=== PATIENT | female | born 2000 | race Caucasian/White ===

== ENCOUNTER 2021-03-15 02:44 | Outpatient (CLI) | payer MEDICAID, SELFPAY ==
[2021-03-15 08:49] LABS: ALT 24 U/L (14-59); AST 15 U/L (15-37); Albumin 3.9 g/dL (3.4-5.0); Alkaline Phosphatase 74 U/L (46-116); Anion Gap 9.2 mmol/L (3-11); BUN 15 mg/dL (7-18); Bilirubin, Total 0.4 mg/dL (0.2-1.0); CO2 26.8 mmol/L (21.0-32.0); CREATININE 0.8 mg/dL (0.55-1.02); Calcium 8.8 mg/dL (8.5-10.1); Calculated LDL 101 mg/dL (<100); Chloride 105 mmol/L (98-107); Cholesterol 193 mg/dL (<200); Glucose 89 mg/dL (74-106); HDL Cholesterol 55 mg/dL (40-60); Sodium 141 mmol/L (136-145); Triglyceride 186 mg/dL (<150)
== END 2021-03-15 02:45 | disposition home or self-care (01) ==
LOC: LBO 02:44
DX: Z13.220 Encounter for screening for lipoid disorders (principal); Z00.00 Encounter for general adult medical examination without abnormal findings
CPT/HCPCS: 36415; 80053; 80061

== ENCOUNTER 2021-03-23 14:38 | Outpatient (CLI) | payer MEDICAID, SELFPAY ==
--- NOTE | 2021-03-23 11:45 | DI.RAD_ITS ---
Exam(s) XR FOOT RT COMPLETE EXAM: XR FOOT RT COMPLETE CLINICAL HISTORY: R foot injury TECHNIQUE: COMPARISON: No exams were available for comparison FINDINGS: Three views were obtained. There is an probable fracture deformity of the medial aspect of the base of the 2nd metatarsal raising the possibility of a Lisfranc ligament injury. No additional fracture seen. Please correlate with the site of the patient's injury, additional evaluation with CT or MR ma y be helpful in evaluating this area. IMPRESSION: Suspect Lisfranc ligament avulsion, CT or MR confirmation may be obtained if clinically indicated RADIATION DOSE DELIVERED: Total DLP
== END 2021-03-23 14:39 | disposition home or self-care (01) ==
LOC: DIORS 14:40
PROVIDERS: Visit Provider Physician Assistant
DX: S99.821A Other specified injuries of right foot, initial encounter (principal); R93.7 Abnormal findings on diagnostic imaging of other parts of musculoskeletal system
CPT/HCPCS: 73630

== ENCOUNTER 2021-05-16 14:07 | Outpatient (REF) | payer MEDICAID, SELFPAY ==
--- NOTE | 2021-05-16 11:58 | PAPFT_PTH ---
PATIENT: Eve Zafar LOC: [facility] U#:[id number] AGE/SX: 21/F ROOM: RE05/16/[address]: Flavia López APRN : 2000 BED: DIS: 05/16/2021 SPEC #: [id number] RECD: 05/16/21 18:27 STATUS: JUDD RUSH #: [id number] PAT: 05/16/21 11:[address]: Flavia López DEPT: [facility] Cytology RECD BY: Norma Castro Tissues: 1 - CX/ENDOCX FOR PAP SMEARS Procedures: PAP THIN PREP/[facility] Screening Comments: [id number] (CHLAMYDIA/GC)
[2021-05-17 14:28] LABS: Chlamydia Result Negative (Negative); GC Result Negative (Negative)
== END 2021-05-16 14:08 | disposition home or self-care (01) ==
LOC: LBN 14:07
DX: Z12.4 Encounter for screening for malignant neoplasm of cervix (principal); Z11.3 Encounter for screening for infections with a predominantly sexual mode of transmission
CPT/HCPCS: 87491; 87591; 88142

== ENCOUNTER 2022-04-11 15:13 | Outpatient (REF) | payer MEDICAID, SELFPAY ==
[2022-04-11 14:09] LABS: Microalb ug/mg Crea 11.7 ug/mg Cr
== END 2022-04-11 15:14 | disposition home or self-care (01) ==
LOC: LBN 15:13
PROVIDERS: PCP Nurse Practitioner Family; Visit Provider Nurse Practitioner Family
DX: R03.0 Elevated blood-pressure reading, without diagnosis of hypertension (principal)
CPT/HCPCS: 82043; 82570

== ENCOUNTER 2022-06-13 12:04 | Outpatient (CLI) | payer MEDICAID, SELFPAY ==
--- NOTE | 2022-06-13 12:00 | RT.EKG_ITS ---
APPROVED REPORT Exam: Resting ECG Reason for Exam: High blood pressure Patient Location: O HR:86 bpm ECG Measurements Heart Rate [address] 123 P 19 QRSd 82 QRS 30 QT 367 T 28 QTc 439 Conclusion Sinus rhythm...normal P axis, V-rate 50- 99 Normal Electrocardiogram
== END 2022-06-13 12:05 | disposition home or self-care (01) ==
LOC: DI.CM 12:05
PROVIDERS: PCP Nurse Practitioner Family; Visit Provider Nurse Practitioner Family
DX: I10 Essential (primary) hypertension (principal)
CPT/HCPCS: 93010

== ENCOUNTER 2022-06-21 04:04 | Outpatient (CLI) | payer MEDICAID, SELFPAY ==
[2022-06-21 12:30] LABS: Abs Immature Grans 0.04 10^3/uL (0.0-0.06); Absolute Basophil Count 0.05 10^3/uL (0.0-0.2); Absolute Eosinophil Count 0.13 10^3/uL (0.0-0.7); Absolute Monocyte Count 0.58 10^3/uL (0.1-0.8); Basophils % 0.5; Eosinophils % 1.3; HCT 35.5 % (36.0-46.0); HGB 11.6 g/dL (11.2-15.7); Immature Grans % 0.4; Lymphocytes % 21.2; MCH 30.1 pg (27.0-33.0); MCHC 32.7 % (32.0-36.0); MCV 92 fL (80-95); MPV 10.2 fL (8.0-11.0); Monocytes % 5.9; Neutrophils % 70.7; Platelet Count 323 10^3/uL (130-400); RBC 3.85 10^6/uL (3.93-5.22); RDW 12.4 % (11.7-14.6); RDW-SD 42.1 fL
[2022-06-21 12:48] LABS: Anion Gap 9.3 mmol/L (3-11); BUN 15 mg/dL (7-18); CO2 27.7 mmol/L (21.0-32.0); CREATININE 0.9 mg/dL (0.55-1.02); Calcium 9.5 mg/dL (8.5-10.1); Calculated LDL 94 mg/dL (<100); Chloride 103 mmol/L (98-107); Cholesterol 175 mg/dL (<200); Estimated GFR 91.55 (mL/min/1.73m2); Glucose 102 mg/dL (74-106); HDL Cholesterol 53 mg/dL (40-60); Potassium 4.1 mmol/L (3.5-5.1); Sodium 140 mmol/L (136-145); Triglyceride 141 mg/dL (<150)
== END 2022-06-21 04:05 | disposition home or self-care (01) ==
LOC: LOS 04:04
PROVIDERS: PCP Nurse Practitioner Family; Visit Provider Nurse Practitioner Family
DX: I10 Essential (primary) hypertension (principal)
CPT/HCPCS: 36415; 80048; 80061; 85025

== ENCOUNTER 2022-07-16 16:02 | Outpatient (REF) | payer MEDICAID, SELFPAY ==
[2022-07-20 16:17] LABS: Urine Volume 500 mL
== END 2022-07-16 16:03 | disposition home or self-care (01) ==
LOC: LBN 16:02
PROVIDERS: PCP Nurse Practitioner Family; Visit Provider Nurse Practitioner Family
DX: I10 Essential (primary) hypertension (principal)
CPT/HCPCS: 81050; 82384

== ENCOUNTER 2023-06-29 15:21 | Outpatient (REF) | payer MEDICAID, SELFPAY ==
[2023-06-29 15:37] LABS: Abs Immature Grans 0.02 10^3/uL (0.0-0.06); Absolute Basophil Count 0.04 10^3/uL (0.0-0.2); Absolute Lymphocyte Count 2.93 10^3/uL (1.2-3.4); Absolute Monocyte Count 0.57 10^3/uL (0.1-0.8); Absolute Neutrophil Count 5.43 10^3/uL (1.2-6.7); Basophils % 0.4; Eosinophils % 1.1; HCT 34.4 % (36.0-46.0); HGB 11.5 g/dL (11.2-15.7); Immature Grans % 0.2; Lymphocytes % 32.2; MCH 29.9 pg (27.0-33.0); MCHC 33.4 % (32.0-36.0); MCV 90 fL (80-95); MPV 10.5 fL (8.0-11.0); Monocytes % 6.3; Neutrophils % 59.8; Platelet Count 265 10^3/uL (130-400); RBC 3.84 10^6/uL (3.93-5.22); RDW-SD 39.2 fL; WBC 9.09 10^3/uL (4.4-10.8)
[2023-06-29 15:52] LABS: ALT 21 U/L (14-59); AST 13 U/L (15-37); Albumin 3.7 g/dL (3.4-5.0); Alkaline Phosphatase 78 U/L (46-116); BUN 10 mg/dL (7-18); Bilirubin, Total 0.4 mg/dL (0.2-1.0); CREATININE 0.9 mg/dL (0.55-1.02); Chloride 103 mmol/L (98-107); Estimated GFR 90.98 (mL/min/1.73m2); Glucose 100 mg/dL (74-106); Potassium 4.3 mmol/L (3.5-5.1); Sodium 139 mmol/L (136-145); Total Protein 7.4 g/dL (6.4-8.2)
[2023-07-01 10:56] LABS: IgA 272 mg/dL (85-499); Interpretation (See Note); Tissue Transglutaminase IgA <4.0 CU (<20.0)
== END 2023-06-29 15:22 | disposition home or self-care (01) ==
LOC: LBN 15:21
PROVIDERS: PCP Nurse Practitioner Family; Visit Provider Nurse Practitioner Family
DX: K52.89 Other specified noninfective gastroenteritis and colitis (principal)
CPT/HCPCS: 80053; 82784; 83516; 85025

== ENCOUNTER 2023-07-01 21:48 | Outpatient (REF) | payer MEDICAID, SELFPAY ==
[2023-07-01 21:21] LABS: C Diff PCR Negative (Negative)
[2023-07-03 11:44] LABS: Campylobacter PCR Negative (Negative); Salmonella PCR Negative (Negative); Shiga Toxin PCR Negative (Negative); Shigella/Enteroinvasive Ecoli Negative (Negative)
[2023-07-04 20:59] LABS: Calprotectin <50.0 mcg/g
== END 2023-07-01 21:49 | disposition home or self-care (01) ==
LOC: LBN 21:48
PROVIDERS: PCP Nurse Practitioner Family; Visit Provider Nurse Practitioner Family
DX: K52.9 Noninfective gastroenteritis and colitis, unspecified (principal)
CPT/HCPCS: 87493; 87505; 83993

== ENCOUNTER 2024-04-17 18:03 | Outpatient (REF) | payer BC, SELFPAY ==
--- NOTE | 2024-04-17 13:40 | PAPFT_PTH ---
PATIENT: Eve Zafar LOC: [facility] U#:[id number] AGE/SX: 23/F ROOM: RE04/17/[address]: Ashwin Mccauley DNP : 2000 BED: DIS: 04/17/2024 SPEC #: [id number] RECD: 04/20/24 13:08 STATUS: JUDD REDustin #: [id number] PAT: 04/17/24 13:[address]: Ashwin Turner DEPT: [facility] Cytology RECD BY: Norma Castro Tissues: 1 - CX/ENDOCX FOR PAP SMEARS Procedures: PAP THIN PREP/[facility] Screening Comments: [id number] (CHLAMYDIA/GC)
[2024-04-21 11:44] LABS: Chlamydia Result Negative (Negative); GC Result Negative (Negative)
== END 2024-04-17 18:04 | disposition home or self-care (01) ==
LOC: LBN 18:03
PROVIDERS: PCP Nurse Practitioner Family; Visit Provider Nurse Practitioner Family
DX: Z11.51 Encounter for screening for human papillomavirus (HPV) (principal); Z01.419 Encounter for gynecological examination (general) (routine) without abnormal findings
CPT/HCPCS: 87491; 87591; 88142

== ENCOUNTER 2025-03-04 11:29 | Outpatient (CLI) | payer SELFPAY ==
[2025-03-04 12:25] LABS: HCT 32.6 % (36.0-46.0); HGB 11.1 g/dL (11.2-15.7); MCH 30.0 pg (27.0-33.0); MCHC 34.0 % (32.0-36.0); MCV 88 fL (80-95); MPV 9.3 fL (8.0-11.0); Platelet Count 273 10^3/uL (130-400); RBC 3.70 10^6/uL (3.93-5.22); RDW 12.2 % (11.7-14.6); RDW-SD 39.3 fL; WBC 8.88 10^3/uL (4.4-10.8)
[2025-03-04 13:29] LABS: Lab Add On Test DONE
[2025-03-04 13:36] LABS: ALT 34 U/L (14-59); AST 20 U/L (15-37); Albumin 3.5 g/dL (3.4-5.0); Alkaline Phosphatase 83 U/L (46-116); Anion Gap 11.9 mmol/L (3-11); BUN 8 mg/dL (7-18); Bilirubin, Total 0.3 mg/dL (0.2-1.0); CO2 25.1 mmol/L (21.0-32.0); Calcium 9.2 mg/dL (8.5-10.1); Calculated LDL 77 mg/dL (<100); Chloride 103 mmol/L (98-107); Cholesterol 153 mg/dL (<200); Estimated GFR 90.42 (mL/min/1.73m2); Glucose 131 mg/dL (74-106); HDL Cholesterol 42 mg/dL (>or=50); Potassium 3.6 mmol/L (3.5-5.1); Sodium 140 mmol/L (136-145); TSH (W/Ref FT4) 2.26 uIU/mL (0.36-3.74); Total Protein 7.6 g/dL (6.4-8.2); Triglyceride 172 mg/dL (<150)
[2025-03-04 13:38] LABS: HCG Quant, Pregnancy < 1 mIU/mL (1-3)
[2025-03-04 14:05] LABS: Iron 76 ug/dL (50-170)
[2025-03-05 09:39] LABS: Lab Add On Test DONE
[2025-03-05 10:20] LABS: Vitamin B12 351 pg/mL (193-986)
== END 2025-03-04 11:30 | disposition home or self-care (01) ==
PROVIDERS: PCP Nurse Practitioner Family; Visit Provider Nurse Practitioner Family
DX: E66.9 Obesity, unspecified; N92.6 Irregular menstruation, unspecified; D64.9 Anemia, unspecified
CPT/HCPCS: 36415; 80053; 80061; 85027; 82607; 83540; 84443; 84702; 87480; 87510; 87660

== ENCOUNTER 2025-03-04 17:40 | Outpatient (REF) | payer SELFPAY | END 2025-03-04 17:41 | disposition home or self-care (01) | LOC: LBN 17:40 | PROVIDERS: PCP Nurse Practitioner Family; Visit Provider Nurse Practitioner Family | DX: N76.0 Acute vaginitis (principal) | CPT/HCPCS: 87480; 87510; 87660 ==

== ENCOUNTER 2025-05-07 13:57 | Outpatient (CLI) | payer BC, SELFPAY ==
[2025-05-07 13:27] LABS: HCT 34.4 % (36.0-46.0); HGB 11.6 g/dL (11.2-15.7); MCH 29.9 pg (27.0-33.0); MCHC 33.7 % (32.0-36.0); MCV 89 fL (80-95); MPV 9.1 fL (8.0-11.0); Platelet Count 315 10^3/uL (130-400); RBC 3.88 10^6/uL (3.93-5.22); RDW 11.8 % (11.7-14.6); RDW-SD 37.6 fL; WBC 8.00 10^3/uL (4.4-10.8)
[2025-05-07 13:59] LABS: Hemoglobin A1C 5.1 % (<5.7)
[2025-05-07 14:05] LABS: Anion Gap 7.1 mmol/L (3-11); BUN 10 mg/dL (9-23); CO2 27.9 mmol/L (20.0-31.0); Calcium 9.1 mg/dL (8.3-10.6); Chloride 106 mmol/L (98-107); Glucose 81 mg/dL (74-106); Potassium 4.3 mmol/L (3.5-5.1); Sodium 141 mmol/L (136-145); Total Iron Binding Capacity 432 ug/dL (250-425)
[2025-05-07 14:07] LABS: Vitamin D 25 Total 15 ng/mL (30-100)
[2025-05-07 14:08] LABS: Ferritin 55 ng/mL (7-271); Folate 18.6 ng/mL (>5.38)
[2025-05-07 14:09] LABS: Vitamin B12 320 pg/mL (211-911)
== END 2025-05-07 13:58 | disposition home or self-care (01) ==
PROVIDERS: PCP Nurse Practitioner Family; Visit Provider Nurse Practitioner Family
DX: R73.9 Hyperglycemia, unspecified (principal); I10 Essential (primary) hypertension; D64.9 Anemia, unspecified; R53.83 Other fatigue
CPT/HCPCS: 36415; 80048; 82306; 85027; 82607; 82728; 82746; 83036; 83550